=== PATIENT | male | born 1945 | race Caucasian/White ===

== ENCOUNTER 2016-04-12 12:10 | Inpatient (IN) | payer MEDICARE, OTHER ==
[2016-04-12] MEDS ORDERED: LISINOPRIL-HCT1 EAC2 PO (13:07)
[2016-04-12] MEDS ORDERED: ALTACE10 MG PO (13:09)
[2016-04-12] MEDS ORDERED: PROAIR RESPICL90 MCG INH (13:09)
[2016-04-12] MEDS ORDERED: ASPIRIN81 MG PO (16:38)
[2016-04-12] MEDS ORDERED: LIPITOR80 MG PO (16:38)
[2016-04-12] MEDS ORDERED: FISH OIL1 GM PO (16:39)
[2016-04-12] MEDS ORDERED: CORGARD80 MG PO (16:40)
[2016-04-12] MEDS ORDERED: NITROLINGUAL12 GM SL (16:41)
[2016-04-15] MEDS ORDERED: ATIVAN0.5 MG PO (11:35)
[2016-04-15] MEDS ORDERED: KLOR-CON M2020 MEQ PO (11:36)
[2016-04-15] MEDS ORDERED: FOLIC ACID1 MG PO (11:37)
[2016-04-15] MEDS ORDERED: VITAMIN B-1100 MG PO (11:37)
[2016-04-15] MEDS ORDERED: CERTAVITE SR-AN1 TAB PO (11:39)
== END 2016-04-15 16:20 | DRG 683 ==
LOC: ER 12:10 → IP 16:35
PROVIDERS: ADMIT Family Medicine
DX: N17.9 Acute kidney failure, unspecified (principal); F10.239 Alcohol dependence with withdrawal, unspecified; E86.0 Dehydration; I12.9 Hypertensive chronic kidney disease with stage 1 through stage 4 chronic kidney disease, or unspecified chronic kidney disease; N18.9 Chronic kidney disease, unspecified; F03.90 Unspecified dementia, unspecified severity, without behavioral disturbance, psychotic disturbance, mood disturbance, and anxiety; I25.10 Atherosclerotic heart disease of native coronary artery without angina pectoris; M47.9 Spondylosis, unspecified; E78.00 Pure hypercholesterolemia, unspecified; K44.9 Diaphragmatic hernia without obstruction or gangrene; E87.6 Hypokalemia; R53.1 Weakness; Z79.82 Long term (current) use of aspirin; Z79.899 Other long term (current) drug therapy; Z88.8 Allergy status to other drugs, medicaments and biological substances; Z87.891 Personal history of nicotine dependence
CPT/HCPCS: J1650; J2060; J3475

== ENCOUNTER → 2016-05-14 | Outpatient (CLI) | payer MEDICARE, OTHER ==
[~2016-05-14] MED LIST: ALTACE10 MG PO; ASPIRIN81 MG PO; ATIVAN0.5 MG PO; CEROVITE SENIO1 EACH PO; CERTAVITE SR-AN1 TAB PO; CORGARD80 MG PO; DULCOLAX10 MG RECTAL; FISH OIL1 GM PO; FLEET ENEMA133 ML RECTAL; FOLIC ACID1 MG PO; KLOR-CON M2020 MEQ PO; LIPITOR80 MG PO; LISINOPRIL-HCT1 EAC2 PO; MILK OF MAGNESI30 ML PO; NAMENDA10 MG PO; NITROLINGUAL12 GM SL; PROAIR RESPICL90 MCG INH; TYLENOL325 MG PO; VITAMIN B-1100 MG PO
== END | disposition short-term general hospital (02) ==
LOC: CLNEUR 08:11
DX: F03.90 Unspecified dementia, unspecified severity, without behavioral disturbance, psychotic disturbance, mood disturbance, and anxiety (principal)

== ENCOUNTER → 2016-06-18 | Outpatient (CLI) | payer MEDICARE, OTHER, MEDICAID | END | disposition short-term general hospital (02) | LOC: CLNEUR 09:17 | DX: F03.90 Unspecified dementia, unspecified severity, without behavioral disturbance, psychotic disturbance, mood disturbance, and anxiety (principal); R41.3 Other amnesia ==

== ENCOUNTER 2016-07-21 20:37 | Inpatient (IN) | payer MEDICARE, OTHER, MEDICAID ==
[~2016-07-21] VITALS: Ht 172.7 cm; Wt 70.5 kg
[~2016-07-21 20:37] MED LIST changes: -CEROVITE SENIO1 EACH PO; -DULCOLAX10 MG RECTAL; -FLEET ENEMA133 ML RECTAL; -MILK OF MAGNESI30 ML PO; -NAMENDA10 MG PO; -TYLENOL325 MG PO
[2016-07-22] MEDS ORDERED: FOLIC ACID1 MG PO (00:15)
[2016-07-22] MEDS ORDERED: MILK OF MAGNESI30 ML PO (00:18)
[2016-07-22] MEDS ORDERED: CEROVITE SENIO1 EACH PO (00:19)
[2016-07-22] MEDS ORDERED: VITAMIN B-1100 MG PO (00:19)
[2016-07-22] MEDS ORDERED: NAMENDA10 MG PO (00:19)
[2016-07-22] MEDS ORDERED: KLOR-CON M2020 MEQ PO (00:20)
[2016-07-22] MEDS ORDERED: TYLENOL325 MG PO (00:21)
[2016-07-22] MEDS ORDERED: DULCOLAX10 MG RECTAL (08:22)
[2016-07-22] MEDS ORDERED: FLEET ENEMA133 ML RECTAL (08:47)
== END 2016-07-24 10:49 | DRG 392 ==
LOC: ER 20:37 → IP 07-22 00:30
PROVIDERS: ADMIT Family Medicine
DX: K57.92 Diverticulitis of intestine, part unspecified, without perforation or abscess without bleeding (principal); E86.0 Dehydration; F03.90 Unspecified dementia, unspecified severity, without behavioral disturbance, psychotic disturbance, mood disturbance, and anxiety; K21.9 Gastro-esophageal reflux disease without esophagitis; E78.5 Hyperlipidemia, unspecified; I10 Essential (primary) hypertension; Z66 Do not resuscitate
CPT/HCPCS: J2270; J2405; J2543; Q9963; Q9967